=== PATIENT | female | born 1980 | race Caucasian/White ===

== ENCOUNTER 2017-09-21 17:01 | Emergency (ER) | payer BC ==
[2017-09-21] MEDS ORDERED: ONDANSETRON HCL INJ/PF 4 MG/2 ML SDV IV ONE (17:52)
--- NOTE | 2017-09-21 17:54 | ER Document Report ---
ED Medical Screen (RME) - General Chief Complaint: Abdominal Pain Stated Complaint: ABDOMINAL PAIN Time Seen by Provider: 09/21/17 17:49 Notes: 36-year-old female here with complaints of right upper quadrant abdominal pain as well as nausea and diarrhea. Has taken ibuprofen for the pain with minimal relief. Symptoms worse with eating and drinking. Still has her gallbladder and appendix. EXAM Moderate right upper quadrant tenderness to palpation Mild epigastric tenderness to palpation No peritoneal signs TRAVEL OUTSIDE OF THE [place] IN LAST 30 DAYS: No - Related Data Allergies/Adverse Reactions: IV contrast Allergy (Uncoded 09/21/17 17:16) Past Medical History - Social History Chew tobacco use (# tins/day): No Frequency of alcohol use: None Drug Abuse: None - Past Medical History Cardiac Medical History: Reports: Hx Hypertension Renal/ Medical History: Denies: Hx Peritoneal Dialysis Physical Exam - Vital signs Vitals: Temp Pulse Resp BP Pulse Ox 99.3 F 80 18 141/62 H 97 09/21/17 17:31 09/21/17 17:31 09/21/17 17:31 09/21/17 17:31 09/21/17 17:31 Course - Vital Signs Vital signs: Temp Pulse Resp BP Pulse Ox 99.3 F 80 18 141/62 H 97 09/21/17 17:31 09/21/17 17:31 09/21/17 17:31 09/21/17 17:31 09/21/17 17:31
[2017-09-21 18:28] LABS: ABSOLUTE EOSINOPHILS # (AUTO) 0.3 10^3/uL (0.0-0.6); ABSOLUTE MONOCYTES (AUTO) 0.7 10^3/uL (0.1-1.4); ABSOLUTE NEUT (AUTO) 9.9 10^3/uL (1.7-8.2); BASOPHILS % (AUTO) 0.3 % (0-2); EOSINOPHILS % (AUTO) 2.2 % (0-6); HEMATOCRIT 41.6 % (36.0-47.0); HEMOGLOBIN 14.7 g/dL (12.0-15.5); LYMPHOCYTES % (AUTO) 15.4 % (13-45); MEAN CORPUSCULAR HEMOGLOBIN 31.2 pg (27.0-33.4); MEAN CORPUSCULAR HGB CONC 35.2 g/dL (32.0-36.0); MEAN CORPUSCULAR VOLUME 89 fl (80-97); MONOCYTES % (AUTO) 5.1 % (3-13); PLATELET COUNT 304 10^3/uL (150-450); RED CELL DISTRIBUTION WIDTH 12.8 % (11.5-14.0); TOTAL CELLS COUNTED % (AUTO) 100 %; WHITE BLOOD COUNT 12.8 10^3/uL (4.0-10.5)
[2017-09-21 18:47] LABS: ALANINE AMINOTRANSFERASE 31 U/L (9-52); ALBUMIN 4.5 g/dL (3.5-5.0); ALKALINE PHOSPHATASE 59 U/L (38-126); ANION GAP 14 (5-19); ASPARTATE AMINO TRANSFERASE 17 U/L (14-36); BILIRUBIN,DIRECT 0.2 mg/dL (0.0-0.4); BILIRUBIN,TOTAL 1.9 mg/dL (0.2-1.3); BLOOD UREA NITROGEN 12 mg/dL (7-20); CARBON DIOXIDE 27 mmol/L (22-30); CHLORIDE 100 mmol/L (98-107); GLUCOSE 86 mg/dL (75-110); LIPASE 87.4 U/L (23-300); POTASSIUM 3.9 mmol/L (3.6-5.0); SODIUM 141.2 mmol/L (137-145); TOTAL PROTEIN 7.6 g/dL (6.3-8.2)
--- NOTE | 2017-09-21 19:18 | ER Document Report ---
ED GI/ - General Chief Complaint: Abdominal Pain Stated Complaint: ABDOMINAL PAIN Time Seen by Provider: 09/21/17 17:49 Notes: The patient is a 36-year-old female who presents with worsening epigastric and right upper quadrant abdominal pain that is constant and feels like a stabbing sensation. She said the pain is worse when she eats and moves. She is also having nausea, vomiting and diarrhea. Denies urinary symptoms, hematuria, fevers, hematemesis, flank pain or rash. TRAVEL OUTSIDE OF THE [place] IN LAST 30 DAYS: No - Related Data Allergies/Adverse Reactions: IV contrast Allergy (Uncoded 09/21/17 17:16) Past Medical History - General Information source: Patient - Social History Smoking Status: Never Smoker Chew tobacco use (# tins/day): No Frequency of alcohol use: None Drug Abuse: None Family History: Reviewed & Not Pertinent Patient has suicidal ideation: No Patient has homicidal ideation: No - Past Medical History Cardiac Medical History: Reports: Hx Hypertension Renal/ Medical History: Denies: Hx Peritoneal Dialysis Review of Systems - Review of Systems Notes: REVIEW OF SYSTEMS: CONSTITUTIONAL: -fevers, -chills EENT: -eye pain, -difficulty swallowing, -nasal congestion CARDIOVASCULAR:-chest pain, -syncope. RESPIRATORY: -cough, -SOB GASTROINTESTINAL: +RUQ and epigastric abdominal pain, +nausea, +vomiting, + diarrhea GENITOURINARY: -dysuria, -hematuria MUSCULOSKELETAL: -back pain, -neck pain SKIN: -rash or skin lesions. HEMATOLOGIC: -easy bruising or bleeding. LYMPHATIC: -swollen, enlarged glands. NEUROLOGICAL: -altered mental status or loss of consciousness, -headache, - neurologic symptoms PSYCHIATRIC: -anxiety, -depression. ALL OTHER SYSTEMS REVIEWED AND NEGATIVE. Physical Exam - Vital signs Vitals: Temp Pulse Resp BP Pulse Ox 99.3 F 80 18 141/62 H 97 09/21/17 17:31 09/21/17 17:31 09/21/17 17:31 09/21/17 17:31 09/21/17 17:31 - Notes Notes: PHYSICAL EXAMINATION: GENERAL: Well-appearing, well-nourished and in no acute distress. HEAD: Atraumatic, normocephalic. EYES: Pupils equal round and reactive to light, extraocular movements intact, sclera anicteric, conjunctiva are normal. ENT: nares patent, oropharynx clear without exudates. Moist mucous membranes. NECK: Normal range of motion, supple without lymphadenopathy LUNGS: Breath sounds clear to auscultation bilaterally and equal. No wheezes rales or rhonchi. HEART: Regular rate and rhythm without murmurs ABDOMEN: Soft, moderate RUQ and epigastric tenderness, normoactive bowel sounds. No guarding, no rebound. No masses appreciated. EXTREMITIES: Normal range of motion, no pitting or edema. No cyanosis. NEUROLOGICAL: Cranial nerves grossly intact. Normal speech, normal gait. Normal sensory and motor exams. PSYCH: Normal mood, normal affect. SKIN: Warm, Dry, normal turgor, no rashes or lesions noted. Course - Re-evaluation Re-evalutation: Patient appears very well. She has tenderness in her epigastric and right upper quadrant, but her ultrasound only shows evidence of fatty liver and no gallbladder disease. Blood work is unremarkable, other than a slight leukocytosis, which may be related to her vomiting. Suspect a component of gastritis from her nausea, vomiting and diarrhea. Instructed her to stay hydrated and begin PPIs for the epigastric pain and Zofran for any vomiting. Given very strict return precautions and she understands. - Vital Signs Vital signs: Temp Pulse Resp BP Pulse Ox 98.5 F 77 16 126/56 H 98 09/21/17 20:30 09/21/17 20:30 09/21/17 20:30 09/21/17 20:30 09/21/17 20:30 - Laboratory Result Diagrams: 09/21/17 17:59 09/21/17 17:59 Laboratory results interpreted by me: 09/21/17 09/21/17 09/21/17 17:59 17:59 19:25 WBC 12.8 H Absolute Neutrophils 9.9 H Total Bilirubin 1.9 H Urine Blood SMALL H Urine Urobilinogen 2.0 H Ur Leukocyte Esterase MODERATE H - Diagnostic Test Radiology reviewed: Image reviewed, Reports reviewed Radiology results interpreted by me: RUQ US: fatty liver Discharge - Discharge Clinical Impression: Nausea vomiting and diarrhea Abdominal pain Qualifiers: Abdominal location: upper abdomen, unspecified Qualified Code(s): R10.10 - Upper abdominal pain, unspecified Condition: Stable Disposition: HOME, SELF-CARE Additional Instructions: ABDOMINAL PAIN: There are many causes of abdominal pain. Pain can mean a serious problem requiring surgery (such as appendicitis). It can also be an innocent problem that goes away on its own (such as a viral infection). Often, time must pass to determine the cause of pain. The physician does not feel that hospitalization is necessary, at present. Things may change within the next 24 hours. Call the doctor or come back for re- examination if any problems occur, such as: (1) Pain that becomes more severe, steady, or becomes concentrated in one specific area. Also, pain that is more severe with movement or coughing. (2) Vomiting that persists or becomes more frequent. (3) Blood in the vomitus, urine, or bowel movements. Blood in the stool may have a tarry or black appearance. (4) Shaking chills or fever greater than 100 degrees F. (5) The abdomen becomes more distended or swollen. (6) Bowel movements cease. (7) Failure to improve as expected. NORMAL EXAM AND WORKUP: At this time, your examination and workup show no significant abnormality. No significant abnormal physical findings are noted. All laboratory, EKG, and imaging (x-ray, CT scans, ultrasound) studies that were ordered show no significant abnormality. Although your examination and all studies that were ordered showed no significant abnormal finding, there are no examinations and no studies that are 100% accurate. There is always the possibility that some abnormality could exist and not be detected with physical examination or within the limits and capabilities of laboratory and other studies. You should return or follow up as you were instructed on your visit today for further evaluation if your symptoms do not resolve. FOLLOW-UP CARE: If you have been referred to a physician for follow-up care, call the physician s office for an appointment as you were instructed or within the next two days. If you experience worsening or a significant change in your symptoms, notify the physician immediately or return to the Emergency Department at any time for re-evaluation. Gastritis You have an inflammation of the stomach called gastritis. This commonly causes upper abdominal pain, nausea, and vomiting. In severe cases, bleeding of the stomach lining can occur. Gastritis can be caused by bacteria or viruses , alcohol, or stomach-irritating drugs. Begin with sips of clear liquids. Take increasing amounts of fluid over the first 24 hours. Then start small amounts of bland foods (such as dry toast , applesauce, mashed potato). Gradually resume your usual diet. You should take antacids every two hours until the pain has subsided. Acid -suppressing drugs may be prescribed as well. Avoid aspirin, caffeine, tobacco , and alcohol. If the abdominal pain worsens, or there is evidence of major bleeding in the stomach (such as black, tarry stool, bloody or black vomit, or lightheadedness), you should return immediately. Call the doctor if you aren't improved in 24 to 36 hours. Prescriptions: Omeprazole Magnesium [Prilosec Otc] 20 mg PO Q12H #14 tablet. Ondansetron [Zofran Odt 4 mg Tablet] 1 - 2 tab PO Q4H PRN #15 tab.rapdis PRN Reason: For Nausea/Vomiting Referrals: SHELLEY PRITCHARD MD [ACTIVE STAFF] - Follow up as needed
--- NOTE | 2017-09-21 19:45 | RADIOLOGY REPORT (SQ) ---
EXAM DESCRIPTION: U/S ABDOMEN LIMITED W/O DOP COMPLETED DATE/TIME: 09/21/2017 7:27 pm REASON FOR STUDY: RUQ pain worse w eating COMPARISON: None. TECHNIQUE: Dynamic and static grayscale images acquired of the right upper quadrant and recorded on PACS. Additional selected color Doppler and spectral images recorded. LIMITATIONS: Study limited due to acoustical interference from fat or from air in the bowel. FINDINGS: PANCREAS: Parts or all of the pancreas poorly seen secondary to acoustical interference fr om fat or from air in the bowel. LIVER: Echotexture is coarse with increased echogenicity consistent with fatty infiltration. No mass es. LIVER VASCULATURE: Normal directional flow of the main portal vein and hepatic veins. GALLBLADDER: No stones. Normal wall thickness. No pericholecystic fluid. ULTRASOUND-DETECTED WELLS'S SIGN: Negative. INTRAHEPATIC DUCTS AND COMMON DUCT: CBD and intrahepatic ducts normal caliber. No filling defects. INFERIOR VENA CAVA: Normal flow. AORTA: Poorly seen secondary to acoustical interference from fat or from air in the bowel. RIGHT KIDNEY: Atrophic. No hydronephrosis. PERITONEAL CAVITY AND RIGHT PLEURAL SPACE: No ascites or effusions. OTHER: No other significant finding. IMPRESSION: FATTY LIVER. PANCREAS PARTIALLY OR COMPLETELY OBSCURED. No acute gallbladder findings. TECHNICAL DOCUMENTATION: JOB ID: [id number] [place]-72 2010 [employer]- All Rights Reserved
[2017-09-21 20:06] LABS: APPEARANCE,URINE SLIGHTLY-CLOUDY; BILIRUBIN,URINE NEGATIVE (NEGATIVE); COLOR,URINE YELLOW; GLUCOSE, URINE NEGATIVE (NEGATIVE); KETONES,URINE NEGATIVE (NEGATIVE); LEUKOCYTE ESTERASE,URINE MODERATE (NEGATIVE); NITRITE,URINE NEGATIVE (NEGATIVE); PROTEIN,URINE NEGATIVE (NEGATIVE); URINE SPECIFIC GRAVITY 1.011
[2017-09-21 20:31] VITALS: BP 126/56
== END 2017-09-21 20:31 | disposition home or self-care (01) ==
LOC: ER 17:01
DX: R11.2 Nausea with vomiting, unspecified (principal); R19.7 Diarrhea, unspecified; R10.10 Upper abdominal pain, unspecified; I10 Essential (primary) hypertension; K76.0 Fatty (change of) liver, not elsewhere classified
CPT/HCPCS: 36415; 76705; 80053; 81001; 81025; 83690; 85025; 99284

== ENCOUNTER 2017-10-29 11:12 | Emergency (ER) | payer BC ==
[2017-10-29 11:17] VITALS: BP 137/74
--- NOTE | 2017-10-29 11:31 | ER Document Report ---
HPI - HPI Pain Level: 3 Notes: Patient is a 36-year-old female with a history of hypertension who presents to the ED complaining of nasal congestion/discharge, dry nonproductive cough, sore throat, subjective fever, body ache, chills, decreased p.o. intake 2 days. Patient states that she is still eating and drinking otherwise. She is urinating normally having normal bowel movements. She denies any smoking or IV drug use. She has no other concerns or complaints. Patient did receive the flu vaccine this year. Denies any headache, neck pain, chest pain, palpitations , syncope, shortness of breath, wheeze, dyspnea, abdominal pain, nausea/vomiting /diarrhea, urinary retention, dysuria, hematuria, back/joint pains, or rash. - ROS Systems Reviewed and Negative: Yes All other systems reviewed and negative - CONSTITUTIONAL Constitutional: REPORTS: Fever, Chills - RESPIRATORY Respiratory: REPORTS: Coughing Past Medical History - Social History Smoking Status: Never Smoker Chew tobacco use (# tins/day): No Frequency of alcohol use: Social Drug Abuse: None Family History: Reviewed & Not Pertinent Patient has suicidal ideation: No Patient has homicidal ideation: No - Past Medical History Cardiac Medical History: Reports: Hx Hypertension Renal/ Medical History: Denies: Hx Peritoneal Dialysis Past Surgical History: Reports: Hx Kidney (Renal Surgery) Vertical Provider Document - CONSTITUTIONAL Agree With Documented VS: Yes Notes: PHYSICAL EXAMINATION: GENERAL: Well-appearing, well-nourished and in no acute distress. A&Ox4. Answers questions appropriately. Moves comfortably w/o notable distress HEAD: Atraumatic, normocephalic. EYES: Pupils equal round and reactive to light, extraocular movements intact, sclera anicteric, conjunctiva are normal. ENT: Nares patent and with clear discharge. oropharynx mild erythema without exudates. 2+ tonsilar hypertrophy with mild erythema no exudate. No palatine shift. Uvula midline. No tongue protrusion. No drooling, hoarseness, or airway compromise. Moist mucous membranes. No sinus tenderness. NECK: Normal range of motion, supple without lymphadenopathy. No rigidity/ meningismus. LUNGS: Breath sounds clear to auscultation bilaterally and equal. No wheezes rales or rhonchi. No retractions HEART: Regular rate and rhythm without murmurs, rubs, gallops. ABDOMEN: Soft, nontender, nondistended abdomen. No guarding, no rebound. No masses appreciated. Normal bowel sounds present. No CVA tenderness bilaterally. No hepatosplenomegaly. NEUROLOGICAL: Normal speech, normal gait. Normal sensory, motor exams PSYCH: Normal mood, normal affect. SKIN: Warm, Dry, normal turgor, no rashes or lesions noted. - INFECTION CONTROL TRAVEL OUTSIDE OF THE [place] IN LAST 30 DAYS: No - RESPIRATORY O2 Sat by Pulse Oximetry: 98 Course - Re-evaluation Re-evalutation: 10/29/17 12:47 Patient is an afebrile, well-hydrated, 36-year-old female who presents the ED with influenza type A. Vitals are stable. PE is otherwise unremarkable. Rapid influenza was positive and strep was negative. No other labs or imaging warranted at this time based on H&P. Patient does not have any significant cardiopulmonary medical history and her lungs are clear to all station bilaterally and she is 98% on room air. Low suspicion for any meningitis, sepsis, peritonsillar/pharyngeal abscess, respiratory compromise, Mil's, or other emergent systemic condition at this time. Patient is aware this condition can change from initial presentation and she needs to monitor symptoms closely. Risks and benefits thoroughly reviewed with the use of Tamiflu. Patient states that she would still like the Tamiflu prescription, and patient is within the Tamiflu treatment guidelines of the CDC. Conservative measures otherwise for symptoms. Recheck with your PCM in 2-3 days. Return to the ED with any worsening/concerning symptoms otherwise as reviewed in discharge. Patient is in agreement. - Vital Signs Vital signs: Temp Pulse Resp BP Pulse Ox 98.5 F 82 16 137/74 H 98 10/29/17 11:16 10/29/17 11:16 10/29/17 11:16 10/29/17 11:16 10/29/17 11:16 Discharge - Discharge Clinical Impression: Influenza A Condition: Stable Disposition: HOME, SELF-CARE Instructions: Influenza ([facility]) Additional Instructions: Maintain adequate fluid intake Take meds as directed tylenol/ibuprofen as needed over the counter cold medication as needed for symptoms Humidified air may help F/u: with your PCM in 2-3 days for a recheck Monitor symptoms closely for any acute/worsening changes and seek medical attention if so Wash hands regularly and keep the mask on as well Return to the ED with any fever, worsening pain, chest pain, palpitations, syncope, worsening LOUISE, neck pain/stiffness, shortness of breath, wheezing, drooling, trouble swallowing/breathing, abdominal pain, n/v/d, rash, or worsening/concerning symptoms otherwise. Prescriptions: Oseltamivir Phosphate [Tamiflu 75 mg Capsule] 75 mg PO BID #10 capsule Forms: Elevated Blood Pressure, Return to Work Referrals: [facility] [Provider Group] - Follow up as needed [facility] [Provider Group] - Follow up as needed
[2017-10-29 12:33] LABS: A TYPE INFLUENZA AG POSITIVE (NEGATIVE); B INFLUENZA AG NEGATIVE (NEGATIVE)
== END 2017-10-29 12:58 | disposition home or self-care (01) ==
LOC: ER 11:12
DX: J09.X2 Influenza due to identified novel influenza A virus with other respiratory manifestations (principal); R09.81 Nasal congestion; R09.89 Other specified symptoms and signs involving the circulatory and respiratory systems; R05 Cough; R50.9 Fever, unspecified; M79.1 Myalgia; R63.0 Anorexia
CPT/HCPCS: 87070; 87077; 87804; 87880; 99283

== ENCOUNTER → 2018-03-21 | Outpatient (CLI) | payer BC ==
--- NOTE | 2018-03-21 15:22 | RADIOLOGY REPORT (SQ) ---
EXAM DESCRIPTION: HYSTEROSALPINGOGRAM; HYSTERO CATH/INJECTION COMPLETED DATE/TIME: 03/21/2018 2:04 pm REASON FOR STUDY: FEMALE INFERTILITY N97.9 FEMALE INFERTILITY, UNSPECIFIED COMPARISON: None. PROCEDURE: PRE-PROCEDURE: Procedure was explained to the patient. She was told to expect cramping du ring the procedure, and possible spotting post procedure. PROCEDURE: Under direct visual inspection, the cervix was cannulated with the hysterosalpingogram ca theter and ProHance gadolinium contrast injected. Patient states she had an adverse reaction to IV C T contrast TECHNIQUE: Temporal fluoroscopic images acquired during the procedure stored to PACS. FLUOROSCOPY TIME: LESS THAN 5 SECONDS 16 images saved to PACS. LIMITATIONS: None. FINDINGS: UTERUS: No identified anomalies. No synechia. RIGHT ADNEXA: Normal size fallopian tube. Free spill of contrast into the peritoneal cavity. LEFT ADNEXA: Normal size fallopian tube. Free spill of contrast into the peritoneal cavity. POST PROCEDURE: The patient tolerated the procedure with no adverse effects. IMPRESSION: NORMAL HYSTEROSALPINGOGRAM. COMMENT: Quality ID 145: Final reports for procedures using fluoroscopy that document radiation exp osure indices, or exposure time and number of fluorographic images (if radiation exposure indices are not available) TECHNICAL DOCUMENTATION: JOB ID: [id number] [employer]- All Rights Reserved Reading location - IP/workstation name: [email or web address]
--- NOTE | 2018-03-21 15:22 | RADIOLOGY REPORT (SQ) ---
EXAM DESCRIPTION: HYSTEROSALPINGOGRAM; HYSTERO CATH/INJECTION COMPLETED DATE/TIME: 03/21/2018 2:04 pm REASON FOR STUDY: FEMALE INFERTILITY N97.9 FEMALE INFERTILITY, UNSPECIFIED COMPARISON: None. PROCEDURE: PRE-PROCEDURE: Procedure was explained to the patient. She was told to expect cramping du ring the procedure, and possible spotting post procedure. PROCEDURE: Under direct visual inspection, the cervix was cannulated with the hysterosalpingogram ca theter and ProHance gadolinium contrast injected. Patient states she had an adverse reaction to IV C T contrast TECHNIQUE: Temporal fluoroscopic images acquired during the procedure stored to PACS. FLUOROSCOPY TIME: LESS THAN 5 SECONDS 16 images saved to PACS. LIMITATIONS: None. FINDINGS: UTERUS: No identified anomalies. No synechia. RIGHT ADNEXA: Normal size fallopian tube. Free spill of contrast into the peritoneal cavity. LEFT ADNEXA: Normal size fallopian tube. Free spill of contrast into the peritoneal cavity. POST PROCEDURE: The patient tolerated the procedure with no adverse effects. IMPRESSION: NORMAL HYSTEROSALPINGOGRAM. COMMENT: Quality ID 145: Final reports for procedures using fluoroscopy that document radiation exp osure indices, or exposure time and number of fluorographic images (if radiation exposure indices are not available) TECHNICAL DOCUMENTATION: JOB ID: [id number] [employer]- All Rights Reserved Reading location - IP/workstation name: [email or web address]
== END ==
LOC: RAD 13:09
PROVIDERS: ATTEND Student in an Organized Health Care Education/Training Program
DX: N97.9 Female infertility, unspecified (principal)
CPT/HCPCS: 58340; 74740

== ENCOUNTER → 2019-02-09 | Outpatient (CLI) | payer BC ==
--- NOTE | 2019-02-09 13:18 | RADIOLOGY REPORT (SQ) ---
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 TECHNIQUE: CT scanogram of the bilateral lower extremities is performed including pelvis to ankles. Measurements of femur, tibia, and entire lower extremities performed by the radiologist and saved to PACS. All CT scanners at this facility use dose modulation, iterative reconstruction, and/or weight based d osing when appropriate to reduce radiation dose to as low as reasonably achievable (ALARA). [facility]: Dose Right [facility]: CareDose [facility]: Dose Right [facility]: Teradose 4D [facility]: [employer] RADIATION DOSE: mGy. LIMITATIONS: None. FINDINGS: RIGHT: FEMUR: 43.3 cm from the superior aspect of the femoral head to the articular surface of the medial fe moral condyle. TIBIA: 34.3 cm from the interspinous notch to the tibial plafond. TOTAL RIGHT LOWER EXTREMITY LENGTH: 77.1 cm. LEFT: FEMUR: 44.3 cm. TIBIA: 34.4 cm. TOTAL LEFT LOWER EXTREMITY LENGTH: 78.2 cm. IMPRESSION: LEG LENGTH MEASUREMENTS DETAILED ABOVE. TECHNICAL DOCUMENTATION: JOB ID: [id number] Quality ID # [id number]: Final reports with documentation of one or more dose reduction techniques (e.g., Au tomated exposure control, adjustment of the mA and/or kV according to patient size, use of iterative reconstruction technique) 2010 [employer]- All Rights Reserved Reading location - IP/workstation name: [email or web address]
== END ==
LOC: RAD 12:31
PROVIDERS: ATTEND Podiatrist Foot & Ankle Surgery
DX: Q72.819 Congenital shortening of unspecified lower limb (principal)
CPT/HCPCS: 77073

== ENCOUNTER → 2020-09-25 | Outpatient (CLI) | payer BC ==
[~2020-09-25] MED LIST: COVID-19 VACCINE (PFIZER)/PF 30 MCG/0.3 ML VIAL IM ONE; EPINEPHRINE INJ/PF 1 MG/1 ML AMPULE IM PRN
== END ==
LOC: EMPHEALTH 07:57
PROVIDERS: ATTEND Internal Medicine
DX: Z23 Encounter for immunization (principal)
CPT/HCPCS: 91300

== ENCOUNTER → 2020-10-01 | Outpatient (CLI) | payer BC ==
--- NOTE | 2020-10-01 12:51 | ER R[facility] ASSESSMENT REPORT ---
Intake - In the Last 14 days Have you traveled outside [place]?: No Have you been in close contact with someone CONFIRMED: Yes Worked in Healthcare?: Yes - Symptoms Subjective Fever([place] feverish): No Chills: No Muscule Aches: No Runny Nose: No Sore Throat: No Cough (New or worsening chronic cough): Yes Shortness of breath: No Nausea or Vomiting: Yes Headache: Yes Abdominal Pain: No Diarrhea(3 or more loose stools in last 24 hours): No - Do you have any of the following Chronic lung disease: Asthma or emphysema or COPD: No Cystic Fibrosis: No Diabetes: No High Blood Pressure: Yes Cardiovascular Disease: No Chronic Kidney Disease: No Chronic Liver Disease: No Chronic blood disorder like Sickle Cell Disease: No Weak immune system due to disease or medication: No Neurologic condition that limits movement: No Developmental delay - Moderate to Severe: No Recent (within past 2 weeks) or current : No Morbid Obesity (>100 pounds over ideal weight): Yes - Objective Temperature: 98.2 F Pulse Rate: 76 Respiratory Rate: 18 Blood Pressure: 150/61 O2 Sat by Pulse Oximetry: 98 Objective: Given above, testing performed: If Testing Performed: Test Specimen Type Sent to General - General Information source: Patient Notes: Patient presents to the RDC for screening for the coronavirus. 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 - Related Data Allergies/Adverse Reactions: venom-honey bee Allergy (Verified 05/09/20 09:39) ciprofloxacin [From Cipro] Adverse Reaction (Verified 05/09/20 09:43) Pruritis IV contrast Allergy (Uncoded 05/05/20 10:15) salt sensitivity Adverse Reaction (Uncoded 05/09/20 09:39) Past Medical History - General Information source: Patient - Social History Smoking Status: Never Smoker Family History: Reviewed & Not Pertinent - Past Medical History Cardiac Medical History: Reports: Hx Hypertension Denies: Hx Coronary Artery Disease, Hx Heart Attack Pulmonary Medical History: Denies: Hx Asthma, Hx Bronchitis, Hx COPD, Hx Pneumonia Neurological Medical History: Denies: Hx Seizures Endocrine Medical History: Reports: Hx Hypothyroidism Renal/ Medical History: Denies: Hx Peritoneal Dialysis Musculoskeletal Medical History: Denies Hx Arthritis Past Surgical History: Reports: Hx Kidney (Renal Surgery) Physical Exam - Notes Notes: The patient was evaluated during the global Covid 19 pandemic, and that diagnosis was suspected/considered upon their initial presentation. Their evaluation in the and testing was consistent with current guidelines for patients who present with complaints or symptoms that may be related to Covid 19. Full physical exam could not be performed due to covid 19 isolation protocols. Constitutional: Nontoxic appearance, no acute distress Eyes: Nonictericsclera clear Cardiovascular: Heart rate and rhythm regular Respiratory: Breath sounds clear bilaterally, nonlabored breathing, no use of accessory muscles, no tachypnea Gastrointestinal: Abdomen not distended Muculoskeletal: Moves all extremities well Skin: Normal color Neuro: Awake alert oriented, normal speech Psych: Normal mood and affect Diagnostic Results Laboratory Results: Patient presents with upper respiratory symptoms worrisome for possible Covid 19. Patient does not have emergency worrying symptoms such as difficulty breathing, shortness of breath, chest pain, pressure, confusion or cyanosis. Patient appears suitable for discharge as vital signs are stable and patient is nontoxic in appearance. Good return precautions have been discussed with patient, patient verbalized understanding and is agreeable with discharge plan of care at this time. Patient Education/Counseling Counseling/Education: Patient was provided with discharge information including: As a person under investigation for Covid 19, the [place] department of Health and Human Services, division of public health advises you to adhere to the following guidance until your test results are reported to you. If your test result is positive, you will receive additional information from your provider and your local health department at that time. Remain at home until you are cleared by the health provider or public health authorities. Keep a log of visitors to your home, notify any visitors to your home of your isolation status. If you plan to move to a new address or leave the county, notify the local health department in your County. Call your doctor or seek care if you have an urgent medical need. Before seeking medical care, call ahead to get instructions from the provider before arriving at the medical office clinic or hospital. Notify them that you are being tested for the virus that causes Covid 19 so that arrangements can be made, as necessary, to prevent transmission to others in the healthcare setting. Next, notify the local health department in your county. If a medical emergency arises and you need to call 911, inform the first responders that you are being tested for the virus that causes Covid 19. Next, notify the local health department in your county. [facility] Discharge - Discharge Clinical Impression: Encounter for screening for COVID-19 Condition: Stable Disposition: Home; Selfcare
[2020-10-01 12:57] VITALS: BP 150/61
[2020-10-01 14:17] LABS: A TYPE INFLUENZA AG NEGATIVE (NEGATIVE); B INFLUENZA AG NEGATIVE (NEGATIVE)
== END ==
LOC: RDC 12:24
PROVIDERS: ATTEND Nurse Practitioner Family
DX: Z20.822 Contact with and (suspected) exposure to COVID-19 (principal); R05 Cough; R11.0 Nausea; R51.9 Headache, unspecified; I10 Essential (primary) hypertension; E03.9 Hypothyroidism, unspecified; E66.01 Morbid (severe) obesity due to excess calories; Z88.1 Allergy status to other antibiotic agents; Z91.030 Bee allergy status; Z91.041 Radiographic dye allergy status; Z91.02 Food additives allergy status; Z91.040 Latex allergy status
CPT/HCPCS: 87070; 87880; 87804; 99211 ×2; U0003; C9803; 87635

== ENCOUNTER → 2020-10-16 | Outpatient (CLI) | payer BC ==
--- OUTSIDE RECORDS SUMMARY | 2020-10-16 08:05 | XMS REPORT ---
:1980 Author Organization [facility] Address [facility] [address] [place] [id number] Care Team Providers Name Role Phone Kieran, Tesha Attending Clinician Unavailable Bundle, Tesha Attending Clinician Unavailable Allergies, Adverse Reactions, Alerts Allergy Allergy Type Status Severity Reaction(s) Onset Inactive Treat ing Comments Name Date Date Clinician Bee Sting Miscellaneous Active SV allergy 11-07 00:00: 00 Medications This patient has no known medications. Problems This patient has no known problems. Procedures Procedure Date / Time Performed Performing Clinician Devic e PREV VISIT EST AGE 40-64 2020-07-11 14:30:00 OFFICE/OUTPATIENT VISIT EST 2018-12-05 10:15:00 OFFICE/OUTPATIENT VISIT NEW 2017-11-07 09:30:00 Results Test Description Test Time Test Comments Text Results Atomic Results Result Comments SARS-CoV-2 RNA Resp Ql CORNELIA+probe 2020-10-03 00:00:00 Test Item Value Reference Range Comments SARS-CoV-2 RNA Resp Ql CORNELIA+probe Not detected [facility] Case ID: (test code = 89948-9) [id number] SARS-CoV-2 RNA Resp Ql CORNELIA+[id number] 00:00:00 Test Item Value Reference Range Comments SARS-CoV-2 RNA Resp Ql Not detected [facility] Case CORNELIA+probe (test code = ID: COVID [id number]) Rapid Strep\S\2019-12-07 13:45:00 Test Item Value Reference Range Comments Rapid Strep (test code = RAPIDSTREP) Negative N/A CBC (INCLUDES DIFF/PLT)2019-12-07 13:29:00 Test Item Value Reference Range Comments ABSOLUTE MONOCYTES (test code = 22310115) 426 cells/uL 200-95 0 MCHC (test code = 92196439) 34.6 g/dL 32.0-36.0 ABSOLUTE LYMPHOCYTES (test code = 32165770) 2501 cells/uL 850- 3900 RED BLOOD CELL COUNT (test code = 57876225) 4.66 Million/uL 3.80 -5.10 ABSOLUTE NEUTROPHILS (test code = 41284038) 4748 cells/uL 1500 -7800 MPV (test code = 87620912) 10.4 fL 7.5-12.5 RDW (test code = 93708896) 12.4 % 11.0-15.0 LYMPHOCYTES (test code = 32266943) 30.5 % BASOPHILS (test code = 70562883) 0.9 % ABSOLUTE BASOPHILS (test code = 15994279) 74 cells/uL 0-200 HEMOGLOBIN (test code = 53267123) 14.4 g/dL 11.7-15.5 MONOCYTES (test code = 09445156) 5.2 % PLATELET COUNT (test code = 72701401) 299 Thousand/uL 140-400 WHITE BLOOD CELL COUNT (test code = 8.2 Thousand/uL 3.8-10.8 84411990) MCH (test code = 93837051) 30.9 pg 27.0-33.0 MCV (test code = 01783713) 89.3 fL 80.0-100.0 HEMATOCRIT (test code = 05060403) 41.6 % 35.0-45.0 EOSINOPHILS (test code = 71015696) 5.5 % ABSOLUTE EOSINOPHILS (test code = 79880478) 451 cells/uL 15-5 00 NEUTROPHILS (test code = 89572487) 57.9 % [id number] 13:29:001.301.30LIPID PANEL, [id number] 13:29:00 Test Item Value Reference Range Comments NON HDL CHOLESTEROL (test code = 21868045) 109 mg/dL (calc) <130 CHOL/HDLC RATIO (test code = 17732861) 3.3 (calc) <5.0 TRIGLYCERIDES (test code = 22278735) 65 mg/dL <150 HDL CHOLESTEROL (test code = 85794718) 48 mg/dL > OR = 50 LDL-CHOLESTEROL (test code = 63017495) 94 mg/dL (calc) CHOLESTEROL, TOTAL (test code = 43009732) 157 mg/dL <200 COMPREHENSIVE METABOLIC [id number] 13:29:00 Test Item Value Reference Range Comments BUN/CREATININE RATIO (test code = NOT APPLICABLE (calc) 6-22 09197090) CALCIUM (test code = 69729668) 9.7 mg/dL 8.6-10.2 GLUCOSE (test code = 01599821) 78 mg/dL 65-99 CREATININE (test code = 56441224) 0.93 mg/dL 0.50-1.10 CARBON DIOXIDE (test code = 99734186) 28 mmol/L 20-32 PROTEIN, TOTAL (test code = 77118937) 7.6 g/dL 6.1-8.1 CHLORIDE (test code = 97519806) 104 mmol/L 98-110 GLOBULIN (test code = 11793775) 3.2 g/dL (calc) 1.9-3.7 POTASSIUM (test code = 51320003) 4.2 mmol/L 3.5-5.3 ALKALINE PHOSPHATASE (test code = 58 U/L 31-125 94658882) UREA NITROGEN (BUN) (test code = 18 mg/dL 7-25 59051571) ALT (test code = 73772484) 24 U/L 6-29 eGFR (test code = 89 mL/min/1.73m2 > OR = 60 50943589) eGFR NON-AFR. PANAMANIAN (test code = 77 mL/min/1.73m2 > OR = 60 25510801) ALBUMIN/GLOBULIN RATIO (test code = 1.4 (calc) 1.0-2.5 20254321) BILIRUBIN, TOTAL (test code = 1.2 mg/dL 0.2-1.2 83879230) AST (test code = 63746742) 17 U/L 10-30 SODIUM (test code = 25582321) 141 mmol/L 135-146 ALBUMIN (test code = 54267353) 4.4 g/dL 3.6-5.1 CBC (INCLUDES DIFF/PLT)2018-12-05 11:55:00 Test Item Value Reference Range Comments PLATELET COUNT (test code = 43902671) 257 Thousand/uL 140-400 ABSOLUTE BASOPHILS (test code = 72752920) 48 cells/uL 0-200 MCV (test code = 22285437) 91.0 fL 80.0-100.0 NEUTROPHILS (test code = 13168148) 64.1 % MCH (test code = 06447243) 31.3 pg 27.0-33.0 RDW (test code = 82003044) 12.5 % 11.0-15.0 HEMOGLOBIN (test code = 46668217) 13.9 g/dL 11.7-15.5 MONOCYTES (test code = 09444719) 5.4 % MPV (test code = 68329413) 10.1 fL 7.5-12.5 ABSOLUTE NEUTROPHILS (test code = 5128 cells/uL 5667-0925 17167489) BASOPHILS (test code = 37702378) 0.6 % WHITE BLOOD CELL COUNT (test code = 8.0 Thousand/uL 3.8-10.8 70133555) ABSOLUTE EOSINOPHILS (test code = 296 cells/uL 15-500 81185029) HEMATOCRIT (test code = 73652273) 40.4 % 35.0-45.0 LYMPHOCYTES (test code = 04068012) 26.2 % ABSOLUTE LYMPHOCYTES (test code = 71183121 cells/uL 850-3900 35608964) ABSOLUTE MONOCYTES (test code = 45296879) 432 cells/uL 200-95 0 EOSINOPHILS (test code = 90588354) 3.7 % RED BLOOD CELL COUNT (test code = 4.44 Million/uL 3.80-5.10 03949224) MCHC (test code = 86740839) 34.4 g/dL 32.0-36.0 LIPID PANEL, [id number] 11:55:00 Test Item Value Reference Range Comments LDL-CHOLESTEROL (test code = 44922044) 83 mg/dL (calc) TRIGLYCERIDES (test code = 97834907) 97 mg/dL <150 NON HDL CHOLESTEROL (test code = 49048167) 102 mg/dL (calc) <130 HDL CHOLESTEROL (test code = 44016833) 53 mg/dL >50 CHOLESTEROL, TOTAL (test code = 95854361) 155 mg/dL <200 CHOL/HDLC RATIO (test code = 50596993) 2.92.9 (calc) <5.0 COMPREHENSIVE METABOLIC [id number] 11:55:00 Test Item Value Reference Range Comments GLOBULIN (test code = 47314380) 2.8 g/dL (calc) 1.9-3.7 eGFR (test code = 89 mL/min/1.73m2 > OR = 60 08936975) BILIRUBIN, TOTAL (test code = 1.31.3 mg/dL 0.2-1.2 71162764) PROTEIN, TOTAL (test code = 50845576) 7.1 g/dL 6.1-8.1 ALKALINE PHOSPHATASE (test code = 46 U/L 33-115 07020812) ALT (test code = 87602084) 18 U/L 6-29 CREATININE (test code = 79721420) 0.94 mg/dL 0.50-1.10 CHLORIDE (test code = 03512231) 103 mmol/L 98-110 AST (test code = 80909433) 17 U/L 10-30 SODIUM (test code = 30257379) 140 mmol/L 135-146 UREA NITROGEN (BUN) (test code = 17 mg/dL 7-25 04120795) eGFR NON-AFR. PANAMANIAN (test code = 76 mL/min/1.73m2 > OR = 60 01706991) GLUCOSE (test code = 65885946) 85 mg/dL 65-99 CALCIUM (test code = 86012374) 9.3 mg/dL 8.6-10.2 BUN/CREATININE RATIO (test code = NOT APPLICABLE (calc) 6-22 23086760) ALBUMIN (test code = 48174384) 4.3 g/dL 3.6-5.1 POTASSIUM (test code = 43511141) 4.1 mmol/L 3.5-5.3 ALBUMIN/GLOBULIN RATIO (test code = 1.5 (calc) 1.0-2.5 13068696) CARBON DIOXIDE (test code = 78840287) 29 mmol/L 20-32 [id number] 11:55:001.81CBC NO Diff (Complete Blood Count)2017-11-07 11:01:00 Test Item Value Reference Range Comments MCHC (test code = 893644) 33.4 g/dL 32.0-36.0 MCH (test code = 505465) 29.9 pg 27.0-33.0 Hemoglobin (test code = 897348) 13.5 g/dL 11.7-15.5 MPV (test code = 363257) 9.3 fL 7.5-12.5 RBC (test code = 676446) 4.51 MIL/uL 3.80-5.10 Hematocrit (test code = 471303) 40.4 % 35.0-45.0 WBC (test code = 436497) 7.5 K/uL 3.8-10.8 RDW (test code = 461121) 13.2 % 11.0-15.0 Platelet Count (test code = 598042) 303 K/uL 140-400 MCV (test code = 673411) 89.6 fL 80.0-100.0 CMP with Estimated [id number] 11:01:00 Test Item Value Reference Range Comments CO2 (test code = 427420) 22 mmol/L 20-31 AST/SGOT (test code = 791942) 19 U/L 10-30 Chloride (test code = 959940) 106 mmol/L 98-110 BUN (test code = 518309) 11 mg/dL 7-25 Albumin (test code = 612637) 4.4 g/dL 3.6-5.1 Creatinine (test code = 972663) 0.94 mg/dL 0.50-1.10 ALT/SGPT (test code = 042158) 17 U/L 6-29 Est GFR, (test code = 494964) 89 mL/min > =60 Bilirubin, Total (test code = 271258) 1.2 mg/dL 0.2-1.2 Glucose (test code = 828557) 84 mg/dL 65-99 Calcium (test code = 807893) 9.7 mg/dL 8.6-10.2 Alkaline Phosphatase (test code = 146809) 50 U/L 33-115 Est GFR, NonAfrican [place]an (test code = 903136) 77 mL/min >=60 Potassium (test code = 288740) 4.1 mmol/L 3.5-5.3 Sodium (test code = 455877) 146 mmol/L 135-146 Total Protein (test code = 035745) 7.4 g/dL 6.1-8.1 Hemoglobin A1c with [id number] 11:01:00 Test Item Value Reference Range Comments eAG (calc) (test code = 476556) 105 mg/dL Hemoglobin A1C (test code = 341745) 5.3 % <5.7 Lipid [id number] 11:01:00 Test Item Value Reference Range Comments Triglycerides (test code = 681735) 85 mg/dL <150 Total Chol/HDL Ratio (test code = 454968) 3.2 Ratio <5.0 Cholesterol (test code = 342284) 147 mg/dL <200 HDL Cholesterol (test code = 261327) 46 mg/dL >50 VLDL Cholesterol (Calc) (test code = 201197) 17 mg/dL <30 LDL Cholesterol (Calc) (test code = 680040) 84 mg/dL <100 Culture, [id number] 11:01:00 Test Item Value Reference Range Comments FINAL REPORT (test code = FR) NO GROWTH [id number] 11:01:00 Test Item Value Reference Range Comments TSH (test code = 840893) 0.48 mIU/L Insulin, [id number] 11:01:00 Test Item Value Reference Range Comments Insulin, Fasting (test code = 056253) 24.0 uIU/mL 2.0-19.6 Assessments Condition Name Status Diagnosis Date Treating Clinici an Encntr for general adult medical exam w/o Active abnormal findings Morbid (severe) obesity due to excess Active calories Body mass index (BMI) 50.0-59.9, adult Active Hypothyroidism, unspecified Active Essential (primary) hypertension Active Hypothyroidism, unspecified Active Cervicalgia Active Body mass index (BMI) 45.0-49.9, adult Active Generalized abdominal pain Active Dysuria Active Morbid (severe) obesity due to excess Active calories Body mass index (BMI) 45.0-49.9, adult Active Encounters Start End Encounter Admission Attending Care Care Encounter Date/Time Date/Time Type Type Clinicians Facility Department ID 2020-07-11 2020-07-11 Outpatient Bundle, [facility] D6 [id number] 14:30:00 14:30:00 Tes[facility] Children???s [id number] and [id number] Multispecialty [id number] Clini 2018-12-05 2018-12-05 Outpatient Bundle, [facility] E4 [id number] 10:15:00 10:15:00 Tesha Children [id number] s [id number] and [id number] Multispecialty Clinic, 2017-11-07 2017-11-07 Outpatient Bundle, [facility] C5 [id number] 09:30:00 09:30:00 Tesha Sosa [id number] s [id number] and [id number] [facility] [place] [place] Social History This patient has no known social history. Vital Signs This patient has no known vital signs.
== END ==
LOC: EMPHEALTH 08:02
PROVIDERS: ATTEND Internal Medicine
DX: Z23 Encounter for immunization (principal)
CPT/HCPCS: 91300